=== PATIENT | female | born 1975 | race Caucasian/White ===

== ENCOUNTER 2020-10-23 08:18 | Outpatient (CLI) | payer BC, SELFPAY ==
--- NOTE | ~2020-10-23 | MM_ITS ---
EXAMINATION: MM screening [facility] w [facility]ella HISTORY: Screening TECHNIQUE: Craniocaudal and mediolateral oblique 3-D tomosynthesis images were obtained and synthetic 2-D images were generated. CAD analysis was submitted and interpreted. COMPARISON: No prior mammogram is available for comparison at this institution. BREAST PARENCHYMAL COMPOSITION: There are scattered areas of fibroglandular density. FINDINGS: There is no evidence of suspicious mass, calcification, or architectural distortion to sugg est malignancy in either breast. There has been no suspicious interval change. IMPRESSION: 1. No mammographic evidence of malignancy. 2. Recommend routine screening mammography in one year. BI-RADS Category 1: Negative Reviewed, dictated and finalized at location [facility].
== END 2020-10-23 08:19 | disposition home or self-care (01) ==
LOC: ANHIMG 08:21
PROVIDERS: PCP Family Medicine; Visit Provider Physician Assistant
DX: Z12.31 Encounter for screening mammogram for malignant neoplasm of breast (principal)
CPT/HCPCS: 77063; 77067

== ENCOUNTER 2020-11-08 14:41 | Outpatient (CLI) | payer BC, SELFPAY ==
--- NOTE | ~2020-11-08 | US_ITS ---
EXAMINATION: US axilla RT DATE: 11/08/2020 15:22 INDICATION: Palpable abnormality with enlarged lymphadenopathy right axilla. TECHNIQUE: Multiple grayscale and Doppler ultrasound images of the region of concern at the right axi lla were obtained. COMPARISON: None FINDINGS: The palpable abnormality of concern corresponds to a 2 mm cystic appearing anechoic lesion located 3 cm deep to the skin surface in the superficial subcutaneous fat. There is a ill-defined approximately 4 mm diameter region of slightly decreased echogenicity of the surrounding fat likely related to inf lammation/edema. No pathologically enlarged lymph nodes or other abnormal masses or fluid collections identified. IMPRESSION: 1. Small region of mild inflammation/edema in the subcutaneous fat surrounding a likely benign 2 mm n onspecific cystic lesion in the superficial subcutaneous fat which could represent an epidermal inclu tiffanie cyst. Given the tiny size would consider clinical follow-up with repeat imaging should there be progressive changes on physical exam. Reviewed, dictated and finalized at location A. IMPRESSION: 1. Small region of mild inflammation/edema in the subcutaneous fat surrounding a likely benign 2 mm nonspecific cystic lesion in the superficial subcutaneous fat which could represent an epidermal inclusion cyst. Given the tiny size woul d consider clinical follow-up with repeat imaging should there be progressive c hanges on physical exam.
== END 2020-11-08 14:42 | disposition home or self-care (01) ==
PROVIDERS: PCP Family Medicine; Visit Provider Physician Assistant
DX: R59.1 Generalized enlarged lymph nodes (principal)
CPT/HCPCS: 76882